=== PATIENT | female | born 1935 ===

== ENCOUNTER 2022-01-01 10:59 | Emergency (ER) | payer OTHER ==
[~2022-01-01] VITALS: Ht 167.6 cm; Wt 69.9 kg
== END 2022-01-01 21:35 | disposition home or self-care (01) ==
LOC: ER 10:59
DX: K80.00 Calculus of gallbladder with acute cholecystitis without obstruction (principal); E11.9 Type 2 diabetes mellitus without complications; E78.00 Pure hypercholesterolemia, unspecified; Z85.3 Personal history of malignant neoplasm of breast; I10 Essential (primary) hypertension; Z86.73 Personal history of transient ischemic attack (TIA), and cerebral infarction without residual deficits

== ENCOUNTER 2022-11-22 14:15 | Emergency (ER) | payer OTHER ==
[~2022-11-22] VITALS: Ht 167.6 cm; Wt 72.6 kg
== END 2022-11-22 22:21 | disposition home or self-care (01) ==
LOC: ER 14:15
DX: S42.212A Unspecified displaced fracture of surgical neck of left humerus, initial encounter for closed fracture (principal); W19.XXXA Unspecified fall, initial encounter; Y93.9 Activity, unspecified; Y92.009 Unspecified place in unspecified non-institutional (private) residence as the place of occurrence of the external cause; Y99.9 Unspecified external cause status